=== PATIENT | female | born 1995 | race African-American/Black ===

== ENCOUNTER 2016-07-17 12:48 | Emergency (ER) | payer MEDICAID ==
[~2016-07-17] VITALS: Ht 172.7 cm; Wt 68.0 kg
[~2016-07-17 12:48] MED LIST: ALBU0.086 INH; ALBU8I INH; MEDR4PAK3 PO
[2016-07-17 12:53] VITALS: BP 157/96; PULSE 84; RESP 16; TEMP 97.9; O2SAT 97
[2016-07-17] MEDS ORDERED: RESP: ALBUTEROL 2.5 MG/IPRATROPIUM 0.5 MG NEB (SCH) INH ONE ×2 (13:00→13:30)
[2016-07-17] MEDS ORDERED: predniSONE 20 MG TAB PO ONE (13:00)
[2016-07-17] MEDS ORDERED: PRED-503 PO (13:02)
[2016-07-17] MEDS ORDERED: ALBUAER3 INH (13:02)
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
== END 2016-07-17 14:11 | disposition home or self-care (01) ==
LOC: NEPB 12:48
DX: J45.901 Unspecified asthma with (acute) exacerbation (principal); Z87.891 Personal history of nicotine dependence
CPT/HCPCS: 94640; 94664; 99283; J7512

== ENCOUNTER 2016-07-20 11:13 | Emergency (ER) | payer MEDICAID ==
[~2016-07-20] VITALS: Ht 172.7 cm; Wt 80.0 kg
[~2016-07-20 11:13] MED LIST changes: -ALBU0.086 INH; -ALBU8I INH; +ALBUAER3 INH; -MEDR4PAK3 PO; +PRED-503 PO
[2016-07-20 11:15] VITALS: BP 143/92; PULSE 74; RESP 12; TEMP 98.3; O2SAT 100
[2016-07-20] MEDS ORDERED: NAPROXEN 500 MG TAB PO ONE (11:45)
[2016-07-20] MEDS ORDERED: RESP: ALBUTEROL 2.5 MG/3 ML NEB (SCH) INH ONE (11:45)
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
--- NOTE | 2016-07-20 13:02 | RADRPT ---
EXAM DATE/TIME: 07/20/2016 12:21 [facility] COMPARISON: No previous studies available for comparison. INDICATIONS : Chest pain. MEDICAL HISTORY : None. SURGICAL HISTORY : None. ENCOUNTER: Initial ACUITY: 1 day PAIN SCORE: 8/10 LOCATION: Left chest FINDINGS: PA and lateral views of the chest demonstrate the lungs to be symmetrically aerated without evidence of mass, infiltrate or effusion. The cardiomediastinal contours are unremarkable. Osseous structure s are intact. CONCLUSION: No acute disease. Balta Boucher MD FACR on July 20, 2016 at 13:00 Board Certified Radiologist. This report was verified electronically.
[2016-07-20] MEDS ORDERED: ZITHTAB PO (13:07)
[2016-07-20] MEDS ORDERED: IBUP800T23 PO (13:09)
--- NOTE | 2016-07-21 14:18 | EKG ---
Date Performed: 07/20/2016 Time Performed: 11:35:14 PTAGE: 21 years EKG: Sinus rhythm WITH SINUS ARRHYTHMIA NORMAL ECG INTERPRETATION BASED ON A DEFAULT AGE OF 40 YEARS NO PREVIOUS TRACING DOCTOR: Rodrick Amato Interpretating Date/Time 07/21/2016 14:09:15
== END 2016-07-20 13:20 | disposition home or self-care (01) ==
LOC: NETRI 11:13
DX: R09.1 Pleurisy (principal); J20.9 Acute bronchitis, unspecified; J45.901 Unspecified asthma with (acute) exacerbation; F17.210 Nicotine dependence, cigarettes, uncomplicated
CPT/HCPCS: 71020; 84703; 93005; 94664; 99284; J7613

== ENCOUNTER 2016-09-14 07:16 | Emergency (ER) | payer MEDICAID ==
[~2016-09-14] VITALS: Ht 172.7 cm; Wt 75.0 kg
[~2016-09-14 07:16] MED LIST changes: +IBUP800T23 PO; +ZITHTAB PO
[2016-09-14 07:17] VITALS: BP 115/85; PULSE 114; RESP 20; TEMP 98.2; O2SAT 92
[2016-09-14 07:43] VITALS: PULSE 101; O2SAT 99
[2016-09-14] MEDS: RESP: ALBUTEROL 2.5 MG/IPRATROPIUM 0.5 MG NEB (SCH) INH ×2 (07:43→07:44)
[2016-09-14 07:44] VITALS: O2SAT 100
[2016-09-14] MEDS ORDERED: DEXAMETHASONE SOD PHOS 4 MG/ML VIAL IM ONE (07:45)
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
--- NOTE | 2016-09-14 08:22 | RADRPT ---
EXAM DATE/TIME: 09/14/2016 07:47 [facility] COMPARISON: CHEST SINGLE AP, October 13, 2012, 9:28. INDICATIONS : Cough. Short of breath. MEDICAL HISTORY : None. SURGICAL HISTORY : None. ENCOUNTER: Initial ACUITY: 1 day PAIN SCORE: 0/10 LOCATION: Bilateral chest FINDINGS: A single view of the chest demonstrates the lungs to be symmetrically aerated without evidence of mas s, infiltrate or effusion. The cardiomediastinal contours are unremarkable. Osseous structures are intact. CONCLUSION: No acute disease. Sumit Kwan MD on September 14, 2016 at 8:20 Board Certified Radiologist. This report was verified electronically.
[2016-09-14] MEDS ORDERED: PRED50 PO (08:32)
[2016-09-14] MEDS ORDERED: ALBUAER3 INH (08:32)
[2016-09-14] MEDS ORDERED: IPRASOL INH (08:32)
== END 2016-09-14 08:58 | disposition home or self-care (01) ==
LOC: NEPB 07:16
DX: J45.901 Unspecified asthma with (acute) exacerbation (principal); F17.210 Nicotine dependence, cigarettes, uncomplicated
CPT/HCPCS: 71010; 84703; 87804; 94640; 94664; 96372; 99283; J1100

== ENCOUNTER 2016-09-19 23:32 | Emergency (ER) | payer MEDICAID ==
[~2016-09-19 23:32] MED LIST changes: +IPRASOL INH; +PRED50 PO
[2016-09-19 23:34] VITALS: BP 121/83; PULSE 80; RESP 16; TEMP 98; O2SAT 98
== END 2016-09-20 01:54 | disposition left against medical advice (07) ==
LOC: NED 23:32
DX: M79.1 Myalgia (principal)
CPT/HCPCS: 99281

== ENCOUNTER 2017-03-28 08:41 | Emergency (ER) | payer SELFPAY ==
[~2017-03-28] VITALS: Ht 172.7 cm; Wt 75.0 kg
[2017-03-28 08:45] VITALS: BP 132/98; PULSE 69; RESP 18; TEMP 98.4; O2SAT 98
[2017-03-28] MEDS ORDERED: SODIUM CHLOR 0.9% 1000 ML INJ 1,000 ML IV ONE (09:06)
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
[2017-03-28] MEDS ORDERED: ONDANSETRON HCL 4 MG/2 ML VIAL IVP ONE (09:15)
[2017-03-28 09:21] LABS: AUTOMATED NEUTROPHIL # 6.3 TH/MM3 (1.8-7.7); BASOPHIL % 0.4 % (0.0-2.0); EOSINOPHIL # 0.1 TH/MM3 (0-0.4); EOSINOPHIL % 1.2 % (0.0-4.0); HEMATOCRIT 38.1 % (35.0-46.0); HEMO FLAGS DIFF FINAL; LYMPH % 19.7 % (9.0-44.0); LYMPHOCYTE # 1.7 TH/MM3 (1.0-4.8); MEAN CELL VOLUME 82.6 FL (80.0-100.0); MEAN CORPUSCULAR HEMOGLOBIN 28.5 PG (27.0-34.0); MEAN CORPUSCULAR HGB CONC 34.5 % (32.0-36.0); MONO % 5.2 % (0.0-8.0); NEUT % 73.5 % (16.0-70.0); PLATELET COUNT 206 TH/MM3 (150-450); RED BLOOD COUNT 4.61 MIL/MM3 (4.00-5.30); RED CELL DISTRIBUTION WIDTH 14.9 % (11.6-17.2); WHITE BLOOD COUNT 8.6 TH/MM3 (4.0-11.0)
[2017-03-28 09:28] LABS: BLOOD, URINE SMALL (NEG); COMMENT (UR) CULT NOT INDICATED; CULTURE IF INDICATED CULT NOT INDICATED; GLUCOSE,URINE NEG (NEG); KETONE, URINE NEG (NEG); NITRITE,URINE NEG (NEG); SQUAMOUS EPITHELIAL CELL URINE 3 /hpf (0-5); URINE COLOR YELLOW (YELLW/STRAW)
[2017-03-28 09:39] LABS: ALT (GPT) 52 U/L (10-53); ANION GAP 7 MEQ/L (5-15); AST (GOT) 20 U/L (15-37); BICARBONATE 22.2 MEQ/L (21.0-32.0); BLOOD UREA NITROGEN 8 MG/DL (7-18); CHLORIDE 107 MEQ/L (98-107); GLOMERULAR FILTRATION RATE 146 ML/MIN (>89); POTASSIUM 3.8 MEQ/L (3.5-5.1); SODIUM (NA) 136 MEQ/L (136-145)
[2017-03-28 09:56] LABS: ALKALINE PHOSPHATASE 68 U/L (45-117); BETA HCG QUANT 157846 MIU/ML (0-5); TOTAL BILIRUBIN ADULT 0.4 MG/DL (0.2-1.0)
[2017-03-28] MEDS ORDERED: ZOFR4TAB3 SL (10:03)
--- NOTE | 2017-03-28 10:13 | RADRPT ---
EXAM DATE/TIME: 03/28/2017 09:20 [place] COMPARISON: No previous studies available for comparison. INDICATIONS : Ectopic. LAB(S): Beta-hC MEDICAL HISTORY : Asthma. Carpal tunnel. Chronic back pain. Vomiting for 2 days. SURGICAL HISTORY : Silver caps on teeth. ENCOUNTER: Initial ACUITY: 2 days PAIN SCORE: 2/10 LOCATION: Bilateral pelvis MEASUREMENTS: UTERUS: 11.6 x 9.0 x 7.3 cm ENDOMETRIAL STRIPE: 15 mm RIGHT OVARY: 3.9 x 3.6 x 3.3 cm LEFT OVARY: 3.0 x 2.1 x 1.7 cm FREE FLUID: No CROWN RUMP LENGTH: 1.9 cm = 8 WKS 3 DAYS FHR: 163 BPM FINDINGS: UTERUS: There is a single live IUP in place. The gestational sac measures 5.0 x 5.0 x 1.5 cm. The embryonic p ole measures 1.9 cm in crown-rump length corresponding to a gestational age of 8 weeks 3 days. cardiac activity is seen. There is a 0.8 x 1.2 x 1.6 cm hypoechoic area seen at the periphery of the gestational sac. RIGHT OVARY: There is a 2.7 cm simple cyst seen at the right ovary. LEFT OVARY: Ovary contains no mass or significant cystic lesion. MISCELLANEOUS: No free fluid. CONCLUSION: 1. Single live IUP at 8 weeks 3 days. 2. 1.6 and are hypoechoic area seen adjacent to the gestational sac which could represent a subchorio sherly hemorrhage. 3. 2.7 cm simple cyst that the right ovary which could be related to the corpus luteum. Gray Chaudhary MD on March 28, 2017 at 10:08 Board Certified Radiologist. This report was verified electronically.
== END 2017-03-28 10:58 | disposition home or self-care (01) ==
LOC: NEPD 08:41
DX: O21.9 Vomiting of pregnancy, unspecified (principal); Z3A.08 8 weeks gestation of pregnancy; O99.331 Smoking (tobacco) complicating pregnancy, first trimester
CPT/HCPCS: 76700; 80053; 81001; 84702; 84703; 85025; 96361; 96374; 99285; J2405; J7030

== ENCOUNTER 2017-04-07 14:09 | Emergency (ER) | payer SELFPAY ==
[~2017-04-07] VITALS: Ht 172.7 cm; Wt 80.0 kg
[~2017-04-07 14:09] MED LIST changes: -IBUP800T23 PO; -IPRASOL INH; -PRED-503 PO; -PRED50 PO; -ZITHTAB PO; +ZOFR4TAB3 SL
[2017-04-07 14:11] VITALS: BP 146/77; PULSE 82; RESP 18; TEMP 98; O2SAT 99
--- NOTE | 2017-04-07 14:14 | PD ---
Physical Exam Time Seen by Provider: 14:13 Narrative 22 y/o female presents for evaluation after falling down some stairs this AM. C/O lower abd pain. Vital signs reviewed. Seen at triage desk. Awaiting bed placement. Data Data Last Documented VS Vital Signs Date Time Temp Pulse Resp B/P (MAP) Pulse Ox O2 Delivery O2 Flow Rate FiO2 04/07/17 14:11 98.0 82 18 146/77 (100) 99 Room Air [facility] Medical Record Reviewed: Yes Supervised Visit with ROSALBA: No Grady Boucher Apr 07, 2017 14:14
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
--- NOTE | 2017-04-07 16:52 | PD ---
Physical Exam Date Seen by Provider: Apr 07, 2017 Time Seen by Provider: 16:51 Narrative I was asked to perform a bedside ultrasound to verify IUP after trauma to the abdomen in a known gravid individual. Data Data Last Documented VS Vital Signs Date Time Temp Pulse Resp B/P (MAP) Pulse Ox O2 Delivery O2 Flow Rate FiO2 04/07/17 16:21 16 04/07/17 14:11 98.0 82 146/77 (100) 99 Room Air Orders Orders Ed Poc Ultrasound (04/07/17 ) Ed Poc Ultrasound (04/07/17 ) [facility] Medical Record Reviewed: Yes Supervised Visit with ROSALBA: Yes Differential Diagnosis Differential diagnosis includes , intra-abdominal injury, threatened AB , incomplete AB. Narrative Course I performed a bedside ultrasound using a curvilinear probe which reveals an IUP with positive heart tones and activity. The patient tolerated the procedure without difficulty and there was no obvious complications. Procedures Procedure Narrative I performed a bedside ultrasound using a curvilinear probe which reveals an IUP with positive heart tones and positive activity. The patient tolerated the procedure without difficulty and there was no obvious complications. Diagnosis Primary Impression: Fall Qualified Codes: W19.XXXA - Unspecified fall, initial encounter Additional Impressions: heart tones present Qualified Codes: Z34.91 - Encounter for supervision of normal , unspecified, first trimester movement present Qualified Codes: Z34.91 - Encounter for supervision of normal , unspecified, first trimester Referrals: Shirring Machine Operator Primary Care Physician Patient Instructions: General Instructions, Fall Prevention (ED), First Trimester (ED) Additional Instruction: Tylenol as directed and as needed for pain Follow-up with rope tow operator Follow-up with primary care provider Return to the emergency department immediately for worsening of symptoms Disposition: 01 DISCHARGE HOME Condition: Stable Hany Acosta MD Apr 07, 2017 16:52
[2017-04-07 17:00] VITALS: BP 110/83; TEMP 97.8
== END 2017-04-07 17:03 | disposition home or self-care (01) ==
LOC: NEPD 14:09
DX: Z34.91 Encounter for supervision of normal pregnancy, unspecified, first trimester (principal); R10.32 Left lower quadrant pain; W19.XXXA Unspecified fall, initial encounter
CPT/HCPCS: 99284

== ENCOUNTER 2017-05-22 20:14 | Emergency (ER) | payer OTHER ==
[~2017-05-22] VITALS: Ht 172.7 cm; Wt 71.7 kg
--- NOTE | 2017-05-22 20:54 | PD ---
HPI Chief Complaint 16 weeks and 2 days Pelvic pain 2 hours Date Seen: May 22, 2017 Time Seen: 20:40 Travel History International Travel<30 Days: No Contact w/Intl Traveler<30Days: No Known Affected Area: No History of Present Illness HPI Pt is a 22 yo g P at 16 weeks and 2 days . care with Bryan BURR. EDC 11-04-2016. Reports pelvic pain past 2 hours. Pain intermittent. She reports having pain for several weeks and has been taking PO Tylenol. 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 Also reports not feeling movements. No fevers or chills, No vaginal bleeding or leaking. Weeks Gestation: 16 History Past Medical History Medical History: Denies Significant Hx Obstetric History Obstetric History Prior term uncomplicated , delivered by C section for arrest of descent. Past Surgical History Narrative Surgical Previous C Section Surgical History: No Previous Surgery Family History Family History: Negative Social History Alcohol Use: No Tobacco Use: Yes (previous 1/2 [employer] smoker, quit on finding out about . ) Substance Abuse: No Allergies-Medications (Allergen,Severity, Reaction): Coded Allergies: No Known Allergies (Verified Adverse Reaction, Unknown, 05/22/17) Home Meds Active Scripts Ondansetron Odt (Zofran Odt) 4 Mg Tab, 4 MG SL Q6HR Y for Nausea/Vomiting, #10 TAB 0 Refills Prov:Hany Acosta MD 03/28/17 Albuterol 8.5 GM Inh (Proair Hfa 8.5 GM Inh) 90 Mcg/Act Aer, 2 PUFF INH Q4-6H Y for SOB/WHEEZING, #1 INHALER 0 Refills 108 mcg/actuation Prov:Tere Pittman 07/17/16 Reported Medications Acetaminophen (Tylenol) 325 Mg Tab, 650 MG PO Q4H Y for PAIN SCALE 1 TO 4, TAB 0 Refills 05/22/17 Review of Systems Except as stated in HPI: all other systems reviewed are Neg Physical Exam Narrative GENERAL: Well-nourished, well-developed patient. SKIN: Warm and dry. HEAD: Normocephalic and atraumatic. EYES: No scleral icterus. No injection or drainage. ENT: No nasal drainage noted. Mucous membranes pink. Airway patent. NECK: Supple, trachea midline. No JVD. CARDIOVASCULAR: Regular rate and rhythm without murmurs, gallops, or rubs. RESPIRATORY: Breath sounds equal bilaterally. No accessory muscle use. BREASTS: Bilateral exam showed no masses , no retractions, no nipple discharge. ABDOMEN/GI: Abdomen soft, non-tender, bowel sounds present, no rebound, no guarding Gravid to [16] weeks size Fundal Height: [-] GENITOURINARY: External Genitalia: intact and normal in appearance BUS glands: [wnl] Cervix: [-] Dilatation: [closed] Effacement: [long, uneffaced] Membranes: [intact Uterine Contractions: [none palpable] FHT's: Baseline: [160s by Doppler] Decels: [-] EXTREMITIES: No cyanosis or edema. BACK: Nontender without obvious deformity. No CVA tenderness. NEUROLOGICAL: Awake and alert. Motor and sensory grossly within normal limits. Five out of 5 muscle strength in all muscle groups. Normal speech. Data Data Vital Signs Reviewed: Yes MDM Medical Record Reviewed: No (No records available to review) Plan 22 yo AA female presents at 16 weeks and 2 days with bilateral groin pain. Likely round ligament pain. Pt is dehydrated with ketonuria. SG 1.030 with ketonuria We plan PO hydration. Cervix is closed, and FHR 160s documented by Doppler. Discharged home after rehydration. Diagnosis Diagnosis: Primary Impression: with 16 completed weeks gestation Additional Impressions: Round ligament pain Dehydration Ketonuria Disposition: 01 DISCHARGE HOME Condition: Stable Juan Pablo Daniel MD May 22, 2017 20:54
[2017-05-22] MEDS ORDERED: TYLE325T PO (20:56)
[2017-05-22] MEDS ORDERED: ACETAMINOPHEN 325 MG TAB PO ONE (21:00)
[2017-05-22 21:38] LABS: BACTERIA, URINE RARE /hpf; BLOOD, URINE NEG (NEG); COMMENT (UR) CULT NOT INDICATED; CULTURE IF INDICATED CULT NOT INDICATED; GLUCOSE,URINE NEG (NEG); KETONE, URINE 10 mg/dL (NEG); NITRITE,URINE NEG (NEG); SQUAMOUS EPITHELIAL CELL URINE 8 /hpf (0-5); URINE COLOR YELLOW (YELLW/STRAW)
== END 2017-05-22 21:23 | disposition home or self-care (01) ==
LOC: HOBED 20:14
DX: O26.892 Other specified pregnancy related conditions, second trimester (principal); R10.2 Pelvic and perineal pain; E86.0 Dehydration; R82.4 Acetonuria; Z3A.16 16 weeks gestation of pregnancy
CPT/HCPCS: 81001; 99284

== ENCOUNTER 2017-07-25 20:45 | Emergency (ER) | payer OTHER | END 2017-07-25 22:10 | disposition home or self-care (01) | LOC: HOBED 20:45 | DX: O36.8120 Decreased fetal movements, second trimester, not applicable or unspecified (principal); J45.909 Unspecified asthma, uncomplicated; Z3A.25 25 weeks gestation of pregnancy | CPT/HCPCS: 76815; 99283-25 ==

== ENCOUNTER 2017-08-18 18:38 | Emergency (ER) | payer OTHER ==
[~2017-08-18] VITALS: Ht 172.7 cm; Wt 90.5 kg
[~2017-08-18 18:38] MED LIST changes: +PREN1CHW7 PO; -ZOFR4TAB3 SL
[2017-08-18 18:39] VITALS: BP 129/70; PULSE 95; RESP 18; TEMP 98.2; O2SAT 100
[2017-08-18 19:13] VITALS: BP 131/76; PULSE 94
--- NOTE | 2017-08-18 19:54 | PD ---
HPI Chief Complaint Planes decreased movement, cold symptoms stopped up nose and sinuses, cough, denies fever nausea vomiting Date Seen: Aug 18, 2017 Time Seen: 19:40 Travel History International Travel<30 Days: No Contact w/Intl Traveler<30Days: No Known Affected Area: No History of Present Illness HPI 22-year-old black female 29 weeks previous goes to [facility] who presents with a several days history of sinus congestion and stuffiness nose cough , no fever chills nausea vomiting however noted decreased movement today. Heart rate tracing is within normal limit range for 29 weeks but is not classically reactive at this time, no contractions seen Weeks Gestation: 29 Para: 1 : 2 History Past Medical History Narrative Medical History of asthma and carries an inhaler with her and uses it periodically. Obstetric History Obstetric History 1 in the past Past Surgical History Narrative Surgical Social History Alcohol Use: No Tobacco Use: No Substance Abuse: No Allergies-Medications (Allergen,Severity, Reaction): Coded Allergies: No Known Allergies (Verified Adverse Reaction, Unknown, 07/20/17) Home Meds Active Scripts Azithromycin (Zithromax Z-Hernan) 250 Mg Dspk, 250 MG PO DIRECTED for Infection , #1 DSPK 0 Refills 500 MG (2 tabs) day 1, then 1 tab days 2-5. Prov:Hiren Hartman II, MD 08/18/17 Vit W/ Ferric Phospha (Vitafol Gummies 3.33-0.333-34.8 mg) 1 Chw Chw, 3 TAB PO DAILY, #90 BOTTLE 11 Refills Prov:Jen Stapleton 08/02/17 Albuterol 8.5 GM Inh (Proair Hfa 8.5 GM Inh) 90 Mcg/Act Aer, 2 PUFF INH Q4-6H Y for SOB/WHEEZING, #1 INHALER 3 Refills 108 mcg/actuation Prov:Jen Stapleton 08/02/17 Review of Systems General / Constitutional: No: Fever, Weight Gain, Chills, Other Eyes: No: Diploplia, Blurred Vision, Visual changes, Pain, Photophobia HENT: No: Headaches, Vertigo, Lightheadedness Cardiovascular: No: Irregular Rhythm, Chest Pain or Discomfort, Palpitations, Tachycardia, Syncope, Varicosities, Edema, Cyanosis Respiratory: Cough, No: Short of Breath, Other Gastrointestinal: No: Nausea, Vomiting, Diarrhea Genitourinary: No: Decreased Urinary Output, Oliguria Musculoskeletal: No: Limited ROM, Weakness, Cramping, Edema, Pain Skin: No Rash, No Itching, No Dryness, No Lumps, No Change in Pigmentation, No Change in Nails, No Alopecia, No Lesions Neurologic: No: Weakness, Dizziness, Syncope, Focal Abnormalities, Coordination Problem, Headache, Slurred Speech, Seizures Psychiatric: No: Depression, Suicidal Ideations, Homicidal Ideation Endocrine: No: Heat Intolerance, Cold Intolerance, Polydipsia, Polyuria, Other Physical Exam Vital Signs Date Time Temp Pulse Resp B/P (MAP) Pulse Ox O2 Delivery O2 Flow Rate FiO2 08/18/17 18:39 98.2 95 18 129/70 (89) 100 Room Air Narrative GENERAL: Well-nourished, well-developed patient. SKIN: Warm and dry. HEAD: Normocephalic and atraumatic. EYES: No scleral icterus. No injection or drainage. ENT: No nasal drainage noted. Mucous membranes pink. Airway patent. NECK: Supple, trachea midline. No JVD. CARDIOVASCULAR: Regular rate and rhythm positive grade 2/6 holosystolic murmur , gallops, or rubs. RESPIRATORY: Breath sounds equal bilaterally. No accessory muscle use. Positive slight expiratory wheeze bilaterally BREASTS: Bilateral exam showed no masses , no retractions, no nipple discharge. ABDOMEN/GI: Abdomen soft, non-tender, bowel sounds present, no rebound, no guarding Gravid to [29-] weeks size Fundal Height: [-29] GENITOURINARY: Membranes: [intact ] Uterine Contractions: [none-] FHT's: Category: [1-] Baseline: [133-] Reactive: [NR-] Variability: [mod-] Decels: none[-] EXTREMITIES: No cyanosis or edema. BACK: Nontender without obvious deformity. No CVA tenderness. NEUROLOGICAL: Awake and alert. Motor and sensory grossly within normal limits. Five out of 5 muscle strength in all muscle groups. Normal speech. Data Data Orders Orders Influenzae A/B Antigen (08/18/17 19:19) Vital Signs (Adult) .ON ADMISSION (08/18/17 19:27) ^ Labor Status (08/18/17 19:27) Urinalysis - C+S If Indicated (08/18/17 19:27) ^ Non Stress Test (08/18/17 19:27) Lactated Ringer's 1000 Ml Inj (Lr 1000 M (08/18/17 20:00) Complete Blood Count With Diff (08/18/17 19:38) Labs Flu swab for a and B influenza negative Urine dip on OB ED is negative for infection positive for minimal blood and protein MDM Interpretation(s) 2-year-old black female at 29 weeks resents with the cold symptoms and decreased movement. No bleeding or leakage of fluid. heart rate is within normal limits but not classically reactive at this time. There are no contractions. Plan to check a flu nasal washing. swab negative for influenza A or B . if negative then would go with a Z-Hernan antibiotic and medications for sinusitis and congestion. Plan to hydrate with a liter fluid check of CBC which was normal., FHR reactive for 29 wks after fluid and time on monitor Plan Plan to treat the patient with a Z-Hernan course, Claritin, as a spray first congestion, when necessary Diagnosis Diagnosis: Primary Impression: Decreased movement Additional Impression: Sinusitis Disposition: 01 DISCHARGE HOME Condition: Stable Scripts Azithromycin (Zithromax Z-Hernan) 250 Mg Dspk 250 MG PO DIRECTED for Infection, #1 DSPK 0 Refills 500 MG (2 tabs) day 1, then 1 tab days 2-5. Prov: Hiren Hartman II, MD 08/18/17 Hiren Hartman II, MD Aug 18, 2017 19:54
[2017-08-18] MEDS ORDERED: LACTATED RINGER'S 1000 ML INJ 1,000 ML IV SCH (20:00)
[2017-08-18 20:07] LABS: AUTOMATED NEUTROPHIL # 6.1 TH/MM3 (1.8-7.7); BASOPHIL # 0.1 TH/MM3 (0-0.2); BASOPHIL % 1.4 % (0.0-2.0); EOSINOPHIL # 0.2 TH/MM3 (0-0.4); EOSINOPHIL % 2.5 % (0.0-4.0); HEMATOCRIT 34.2 % (35.0-46.0); HEMOGLOBIN 11.6 GM/DL (11.6-15.3); LYMPH % 13.5 % (9.0-44.0); LYMPHOCYTE # 1.1 TH/MM3 (1.0-4.8); MEAN CELL VOLUME 83.5 FL (80.0-100.0); MEAN CORPUSCULAR HEMOGLOBIN 28.4 PG (27.0-34.0); MONO % 9.5 % (0.0-8.0); MONOCYTE # 0.8 TH/MM3 (0-0.9); NEUT % 73.1 % (16.0-70.0); PLATELET COUNT 214 TH/MM3 (150-450); RED BLOOD COUNT 4.09 MIL/MM3 (4.00-5.30); RED CELL DISTRIBUTION WIDTH 15.2 % (11.6-17.2); WHITE BLOOD COUNT 8.3 TH/MM3 (4.0-11.0)
[2017-08-18 20:15] VITALS: RESP 18
[2017-08-18 20:15] LABS: AMORPHOUS SEDIMENT, URINE RARE; BACTERIA, URINE RARE /hpf; BILIRUBIN, URINE NEG (NEG); BLOOD, URINE TRACE (NEG); GLUCOSE,URINE NEG (NEG); KETONE, URINE NEG (NEG); MUCUS URINE FEW /lpf (OCC); NITRITE,URINE NEG (NEG); PH, URINE 6.5 (5.0-8.5); SQUAMOUS EPITHELIAL CELL URINE 1 /hpf (0-5); URINE COLOR YELLOW (YELLW/STRAW); URINE LEUKOCYTE ESTERASE NEG (NEG)
[2017-08-18 20:45] VITALS: RESP 16
[2017-08-18] MEDS ORDERED: ZITHTAB PO (21:08)
== END 2017-08-18 21:34 | disposition home or self-care (01) ==
LOC: HOBED 18:38
DX: O36.8130 Decreased fetal movements, third trimester, not applicable or unspecified (principal); O26.893 Other specified pregnancy related conditions, third trimester; J32.9 Chronic sinusitis, unspecified; Z3A.29 29 weeks gestation of pregnancy; J45.909 Unspecified asthma, uncomplicated
CPT/HCPCS: 81001; 85025; 87804; 96360; 96361; 99284; J7120

== ENCOUNTER 2017-09-29 13:52 | Emergency (ER) | payer MEDICAID ==
[~2017-09-29 13:52] MED LIST changes: +ZITHTAB PO
[2017-09-29] MEDS ORDERED: CEPH-460 PO (15:00)
[2017-09-29] MEDS ORDERED: TYLETAB34 PO (15:01)
--- NOTE | 2017-09-29 15:01 | PD ---
HPI Chief Complaint Complains of abdominal pelvic pain and right jaw pain Date Seen: Sep 29, 2017 Time Seen: 14:45 Travel History International Travel<30 Days: No Contact w/Intl Traveler<30Days: No Known Affected Area: No History of Present Illness HPI Patient is 22-year-old black female at 35 weeks he [facility] and presents complaining of pelvic pain genital pain not quite as much abdominal contraction pain. She also complains of her right jaw and a lot of pain due to dental problems. She says the dentist would not do anything to her while she is and she has had no therapy for this other than Tylenol which says does little to nothing. Denies bleeding or leakage of fluid. Baby active. heart rate tracing is reactive. No regular contractions seen Weeks Gestation: 35 Para: 1 : 2 History Obstetric History Obstetric History 1 vaginal delivery Social History Alcohol Use: No Tobacco Use: No Substance Abuse: No Allergies-Medications (Allergen,Severity, Reaction): Coded Allergies: No Known Allergies (Verified Adverse Reaction, Unknown, 07/20/17) Home Meds Active Scripts Azithromycin (Zithromax Z-Hernan) 250 Mg Dspk, 250 MG PO DIRECTED for Infection , #1 DSPK 0 Refills 500 MG (2 tabs) day 1, then 1 tab days 2-5. Prov:Hiren Hartman II, MD 08/18/17 Vit W/ Ferric Phospha (Vitafol Gummies 3.33-0.333-34.8 mg) 1 Chw Chw, 3 TAB PO DAILY, #90 BOTTLE 11 Refills Prov:Jen Stapleton 08/02/17 Albuterol 8.5 GM Inh (Proair Hfa 8.5 GM Inh) 90 Mcg/Act Aer, 2 PUFF INH Q4-6H Y for SOB/WHEEZING, #1 INHALER 3 Refills 108 mcg/actuation Prov:Jen Stapleton 08/02/17 Review of Systems General / Constitutional: No: Fever, Weight Gain, Chills, Other Eyes: No: Diploplia, Blurred Vision, Visual changes, Pain, Photophobia HENT: Other, No: Headaches, Vertigo, Lightheadedness Cardiovascular: No: Irregular Rhythm, Chest Pain or Discomfort, Palpitations, Tachycardia, Syncope, Varicosities, Edema, Cyanosis Respiratory: No: Cough, Short of Breath, Other Gastrointestinal: Abdominal Pain, No: Nausea, Vomiting, Diarrhea Genitourinary: No: Decreased Urinary Output, Oliguria Musculoskeletal: No: Limited ROM, Weakness, Cramping, Edema, Pain Skin: No Rash, No Itching, No Dryness, No Lumps, No Change in Pigmentation, No Change in Nails, No Alopecia, No Lesions Neurologic: No: Weakness, Dizziness, Syncope, Focal Abnormalities, Coordination Problem, Headache, Slurred Speech, Seizures Psychiatric: No: Depression, Suicidal Ideations, Homicidal Ideation Endocrine: No: Heat Intolerance, Cold Intolerance, Polydipsia, Polyuria, Other Physical Exam Narrative GENERAL: Well-nourished, well-developed patient. In moderate discomfort SKIN: Warm and dry. HEAD: Normocephalic and atraumatic. EYES: No scleral icterus. No injection or drainage. ENT: No nasal drainage noted. Mucous membranes pink. Airway patent. Patient's right side of her face around the jaw area is slightly swollen, on looking inside the oral cavity she has 2 bad cavities on that right upper row of teeth in the back but I do not see redness purulence or is significant edema in that area NECK: Supple, trachea midline. No JVD. CARDIOVASCULAR: Regular rate and rhythm without murmurs, gallops, or rubs. RESPIRATORY: Breath sounds equal bilaterally. No accessory muscle use. BREASTS: Bilateral exam showed no masses , no retractions, no nipple discharge. ABDOMEN/GI: Abdomen soft, non-tender, bowel sounds present, no rebound, no guarding Gravid to [-35] weeks size Fundal Height: [-35] GENITOURINARY: External Genitalia: intact and normal in appearance BUS glands: [-] Cervix: [-post] Dilatation: [0-] Effacement: [-0] Station: [-3] Presentation: [vtx-] Membranes: [intact ] Uterine Contractions: [occasional-] FHT's: Category: [-1] Baseline: [133-] Reactive: [-R] Variability: [mod-] Decels: [none-] EXTREMITIES: No cyanosis or edema. BACK: Nontender without obvious deformity. No CVA tenderness. NEUROLOGICAL: Awake and alert. Motor and sensory grossly within normal limits. Five out of 5 muscle strength in all muscle groups. Normal speech. MDM Interpretation(s) Patient is 22-year-old black female at 35 weeks who has some pelvic pain today but her main problem seems to be her right jaw pain due to 2 bad cavities on the upper back teeth near the molar in the wisdom tooth area. There is no lymphadenopathy in the right side of her face in the jaw area is somewhat tender to palpation. There is no obstetric issue she is not chance cervix is closed and heart rate tracing is reactive Plan Plan to the patient and I M shot of Demerol and Phenergan for pain, I M Rocephin 2 g, p.o. Keflex for a week 500 mg 3 times daily. We will give her half a dozen Tylenol No. 3's for pain to use at home to hydrate appropriately and the follow-up with her OB provider Diagnosis Diagnosis: Primary Impression: Abdominal pain during in third trimester Additional Impressions: Dental cavities Pain in upper jaw Disposition: 01 DISCHARGE HOME Condition: Stable Scripts Acetaminophen-Codeine (Tylenol-Codeine #3) 300-30 mg Tab 1 TAB PO Q6H Y for PAIN, #7 TAB 0 Refills Prov: Hiren Hartman II, MD 09/29/17 Cephalexin (Keflex) 500 Mg Cap 500 MG PO Q8H for Infection for 7 Days, #21 CAP 0 Refills Prov: Hiren Hartman II, MD 09/29/17 Hiren Hartman II, MD Sep 29, 2017 15:01
[2017-09-29] MEDS ORDERED: MEPERIDINE HCL 50 MG/ML VIAL IM ONE (16:00)
[2017-09-29] MEDS ORDERED: PROMETHAZINE INJ 25 MG/ML VIAL IM ONE (16:00)
== END 2017-09-29 15:33 | disposition home or self-care (01) ==
LOC: HOBED 13:52
DX: O26.893 Other specified pregnancy related conditions, third trimester (principal); R10.2 Pelvic and perineal pain; K02.9 Dental caries, unspecified; R68.84 Jaw pain; Z3A.35 35 weeks gestation of pregnancy
CPT/HCPCS: 59025; 96372; 99283; J0696; J2175

== ENCOUNTER 2017-10-16 19:51 | Emergency (ER) | payer MEDICAID ==
[~2017-10-16 19:51] MED LIST changes: +CEPH-460 PO; +TYLETAB34 PO
--- NOTE | 2017-10-16 20:53 | PD ---
HPI Chief Complaint ctxs Date Seen: Oct 16, 2017 Time Seen: 20:48 Travel History International Travel<30 Days: No Contact w/Intl Traveler<30Days: No Known Affected Area: No History of Present Illness HPI pt. is a @ 37 09/15 weeks w/ c/o ctxs. pt. states been having ctxs thruout day that have increased in freq and intensity. pt. has h/o cd and sched for repeat on 10/28. pt. cervix closed/long/high/post. Weeks Gestation: 37 Para: 1 : 2 History Past Medical History Medical History: Denies Significant Hx Obstetric History Obstetric History , cd x 1 Past Surgical History Narrative Surgical h/o cd x 1 Family History Family History: Negative Social History Alcohol Use: No Tobacco Use: No Substance Abuse: No Allergies-Medications (Allergen,Severity, Reaction): Coded Allergies: No Known Allergies (Verified Adverse Reaction, Unknown, 07/20/17) Home Meds Active Scripts Acetaminophen-Codeine (Tylenol-Codeine #3) 300-30 mg Tab, 1 TAB PO Q6H Y for PAIN, #7 TAB 0 Refills Prov:Hiren Hartman II, MD 09/29/17 Cephalexin (Keflex) 500 Mg Cap, 500 MG PO Q8H for Infection for 7 Days, #21 CAP 0 Refills Prov:Hiren Hartman II, MD 09/29/17 Azithromycin (Zithromax Z-Hernan) 250 Mg Dspk, 250 MG PO DIRECTED for Infection , #1 DSPK 0 Refills 500 MG (2 tabs) day 1, then 1 tab days 2-5. Prov:Hiren Hartman II, MD 08/18/17 Vit W/ Ferric Phospha (Vitafol Gummies 3.33-0.333-34.8 mg) 1 Chw Chw, 3 TAB PO DAILY, #90 BOTTLE 11 Refills Prov:Jen Stapleton 08/02/17 Albuterol 8.5 GM Inh (Proair Hfa 8.5 GM Inh) 90 Mcg/Act Aer, 2 PUFF INH Q4-6H Y for SOB/WHEEZING, #1 INHALER 3 Refills 108 mcg/actuation Prov:Jen Stapleton 1/22/18 Review of Systems Except as stated in HPI: all other systems reviewed are Neg Physical Exam Narrative GENERAL: Well-nourished, well-developed patient. SKIN: Warm and dry. HEAD: Normocephalic and atraumatic. EYES: No scleral icterus. No injection or drainage. ENT: No nasal drainage noted. Mucous membranes pink. Airway patent. NECK: Supple, trachea midline. No JVD. CARDIOVASCULAR: Regular rate and rhythm without murmurs, gallops, or rubs. RESPIRATORY: Breath sounds equal bilaterally. No accessory muscle use. ABDOMEN/GI: Abdomen soft, non-tender, bowel sounds present, no rebound, no guarding Gravid GENITOURINARY: External Genitalia: intact and normal in appearance Cervix: post Dilatation: closed Effacement: long Station:high Uterine Contractions: irreg FHT's: Category: 1 Reactive:+ Variability: mod EXTREMITIES: No cyanosis or edema. BACK: Nontender without obvious deformity. No CVA tenderness. NEUROLOGICAL: Awake and alert. Motor and sensory grossly within normal limits. Five out of 5 muscle strength in all muscle groups. Normal speech. Data Data Vital Signs Reviewed: Yes Orders Orders Senior Php Web Developer Clear For Discharge (10/16/17 ) [facility] Medical Record Reviewed: Yes Plan pt. to be d/c to home. not in labor. condition d/w pt. pt. given precautions for return. all ? answered. f/u as sched. Diagnosis Diagnosis: Primary Impression: History of delivery Additional Impressions: Uterine contractions during 37 weeks gestation of Disposition: 01 DISCHARGE HOME Rodrick Jones Jr., MD Oct 16, 2017 20:53
== END 2017-10-16 20:58 | disposition home or self-care (01) ==
LOC: HOBED 19:51
DX: O26.893 Other specified pregnancy related conditions, third trimester (principal); N85.8 Other specified noninflammatory disorders of uterus; Z3A.37 37 weeks gestation of pregnancy
CPT/HCPCS: 59025

== ENCOUNTER 2017-10-22 09:00 | Inpatient (IN) | payer MEDICAID ==
[~2017-10-22] VITALS: Ht 172.7 cm; Wt 97.0 kg
[2017-10-28] VITALS (19 sets, daily range): BP systolic 121–153; BP diastolic 76–106; PULSE 72–105; RESP 16–19; TEMP 97.9–98.4; O2SAT 98–100
[2017-10-28] MEDS ORDERED: LACTATED RINGER'S 1000 ML INJ 1,000 ML IV ONE ×2 (08:20→12:00)
[2017-10-28] MEDS ORDERED: LACTATED RINGER'S 1000 ML INJ 1,000 ML IV SCH (08:50)
[2017-10-28] MEDS ORDERED: ALBUTEROL SULFATE 90 MCG/ACT HFA 8 GM INHALER INH PRN (09:00)
[2017-10-28 09:02] LABS: AUTOMATED NEUTROPHIL # 5.5 TH/MM3 (1.8-7.7); BASOPHIL % 0.3 % (0.0-2.0); EOSINOPHIL # 0.1 TH/MM3 (0-0.4); EOSINOPHIL % 0.7 % (0.0-4.0); HEMATOCRIT 31.7 % (35.0-46.0); HEMOGLOBIN 10.3 GM/DL (11.6-15.3); LYMPH % 19.6 % (9.0-44.0); LYMPHOCYTE # 1.5 TH/MM3 (1.0-4.8); MEAN CELL VOLUME 73.3 FL (80.0-100.0); MEAN CORPUSCULAR HEMOGLOBIN 23.8 PG (27.0-34.0); MEAN CORPUSCULAR HGB CONC 32.4 % (32.0-36.0); MEAN PLATELET VOLUME 8.2 FL (7.0-11.0); MONO % 7.9 % (0.0-8.0); MONOCYTE # 0.6 TH/MM3 (0-0.9); NEUT % 71.5 % (16.0-70.0); PLATELET COUNT 159 TH/MM3 (150-450); RED BLOOD COUNT 4.32 MIL/MM3 (4.00-5.30); RED CELL DISTRIBUTION WIDTH 16.9 % (11.6-17.2); WHITE BLOOD COUNT 7.7 TH/MM3 (4.0-11.0)
--- NOTE | 2017-10-28 09:05 | HHI.HP ---
HPI Chief Complaint repeat Date Seen: Oct 28, 2017 Time Seen: 08:25 Travel History International Travel<30 Days: No Contact w/Intl Traveler<30Days: No Known Affected Area: No History of Present Illness HPI Ms Parmar is a 22YO AAF at 39/1 weeks followed by [facility] who presents fro elective repeat C/S. Pt has PMHx of asthma controlled on PRN albuterol inhaler. Pt reports no LOF or VB. There are no ctx. She has had an uneventful . Her first was complicated by pre-eclampsia and failure to progress followed by C/S. Pt denies PRYOR, CP, SOB, N/V/D, rash, dizziness, fever, chills, and DVT pain. Pt takes PNV in addition to PRN albuterol and has NKA. Weeks Gestation: 39 Para: 1 : 2 History Past Medical History Narrative Medical Asthma Obstetric History Obstetric History 1st required C/S due to failure to progress 1st complicated by pre-eclampsia this has been without complication Past Surgical History Narrative Surgical 1 Family History Narrative Family History Mother - DM and HTN Social History Alcohol Use: No Tobacco Use: Yes (pt quit smoking when she found out she was ) Substance Abuse: No Allergies-Medications (Allergen,Severity, Reaction): Coded Allergies: No Known Allergies (Verified Adverse Reaction, Unknown, 07/20/17) Home Meds Active Scripts Acetaminophen-Codeine (Tylenol-Codeine #3) 300-30 mg Tab, 1 TAB PO Q6H Y for PAIN, #7 TAB 0 Refills Prov:Hiren Hartman II, MD 09/29/17 Cephalexin (Keflex) 500 Mg Cap, 500 MG PO Q8H for Infection for 7 Days, #21 CAP 0 Refills Prov:Hiren Hartman II, MD 09/29/17 Azithromycin (Zithromax Z-Hernan) 250 Mg Dspk, 250 MG PO DIRECTED for Infection , #1 DSPK 0 Refills 500 MG (2 tabs) day 1, then 1 tab days 2-5. Prov:Hiren Hartman II, MD 08/18/17 Vit W/ Ferric Phospha (Vitafol Gummies 3.33-0.333-34.8 mg) 1 Chw Chw, 3 TAB PO DAILY, #90 BOTTLE 11 Refills Prov:Jen Stapleton [employer]YING ENGINEER 08/02/17 Albuterol 8.5 GM Inh (Proair Hfa 8.5 GM Inh) 90 Mcg/Act Aer, 2 PUFF INH Q4-6H Y for SOB/WHEEZING, #1 INHALER 3 Refills 108 mcg/actuation Prov:Jen Stapleton [facility] 08/02/17 Review of Systems General / Constitutional: No: Fever, Chills Eyes: No: Visual changes HENT: No: Headaches, Lightheadedness Cardiovascular: Chest Pain or Discomfort (pt states she had CP 2 weeks ago), No : Palpitations Respiratory: No: Cough, Short of Breath Gastrointestinal: No: Nausea, Vomiting, Diarrhea, Abdominal Pain, Constipation Genitourinary: No: Dysuria Musculoskeletal: No: Weakness, Cramping, Edema Skin: No Rash Neurologic: No: Dizziness, Headache Psychiatric: Depression (occasional) Physical Exam Narrative GENERAL: Well-nourished, well-developed patient in NAD. SKIN: Warm and dry. No lesions or rashes. HEAD: Normocephalic and atraumatic. EYES: No scleral icterus. No injection or drainage. EOMI. ENT: No nasal drainage noted. Mucous membranes pink. Airway patent. NECK: Supple, trachea midline. No JVD. CARDIOVASCULAR: Regular rate and rhythm without murmurs, gallops, or rubs. RESPIRATORY: Breath sounds equal bilaterally. No accessory muscle use. Wheezing heard bilaterally. ABDOMEN/GI: Abdomen soft, non-tender, bowel sounds present, no rebound, no guarding Gravid to 39 weeks size GENITOURINARY: External Genitalia: intact and normal in appearance Cervix: deferred due to C/S Dilatation: 0 Effacement: 50 Station: - Presentation: - Membranes: intact Uterine Contractions: absent FHT's: Category: 1 Baseline: 145 Reactive: yes Variability: moderate Decels: absent EXTREMITIES: No cyanosis or edema. BACK: Nontender without obvious deformity. No CVA tenderness. NEUROLOGICAL: Awake and alert. Motor and sensory grossly within normal limits. Five out of 5 muscle strength in all muscle groups. Normal speech. Caprini VTE Risk Assessment Caprini VTE Risk Assessment: No/Low Risk (score <= 1) Caprini Risk Assessment Model Point Value = 1 Point Value = 2 Point Value = 3 Point Value = 5 Age 41-60 Minor surgery BMI > 25 kg/m2 Swollen legs Varicose veins or History of unexplained or recurrent spontaneous Oral contraceptives or hormone replacement Sepsis (< 1 month) Serious lung disease, including pneumonia (< 1 month) Abnormal pulmonary function Acute myocardial infarction Congestive heart failure (< 1 month) History of inflammatory bowel disease Medical patient at bed rest Age 61-74 Arthroscopic surgery Major open surgery (> 45 min) Laparoscopic surgery (> 45 min) Malignancy Confined to bed (> 72 hours) Immobilizing plaster cast Central venous access Age >= 75 History of VTE Family history of VTE Factor V Leiden Prothrombin [id number] Lupus anticoagulant Anticardiolipin antibodies Elevated serum homocysteine Heparin-induced thrombocytopenia Other congenital or acquired thrombophilia Stroke (< 1 month) Elective arthroplasty Hip, pelvis, or leg fracture Acute spinal cord injury (< 1 month) Prophylaxis Regimen Total Risk Factor Score Risk Level Prophylaxis Regimen 0-1 Low Early ambulation 2 Moderate Order ONE of the following: *Sequential Compression Device (SCD) *Heparin 5000 units SQ BID 3-4 Higher Order ONE of the following medications: *Heparin 5000 units SQ TID *Enoxaparin/Lovenox 40 mg SQ daily (WT < 150 kg, CrCl > 30 mL/min) *Enoxaparin/Lovenox 30 mg SQ daily (WT < 150 kg, CrCl > 10-29 mL/min) *Enoxaparin/Lovenox 30 mg SQ BID (WT < 150 kg, CrCl > 30 mL/min) AND/OR *Sequential Compression Device (SCD) 5 or more Highest Order ONE of the following medications: *Heparin 5000 units SQ TID (Preferred with Epidurals) *Enoxaparin/Lovenox 40 mg SQ daily (WT < 150 kg, CrCl > 30 mL/min) *Enoxaparin/Lovenox 30 mg SQ daily (WT < 150 kg, CrCl > 10-29 mL/min) *Enoxaparin/Lovenox 30 mg SQ BID (WT < 150 kg, CrCl > 30 mL/min) AND *Sequential Compression Device (SCD) Data Data Vital Signs Reviewed: Yes Orders Orders Admit To Inpatient (10/28/17 ) Code Status (10/28/17 08:20) Vital Signs (Adult) .ON ADMISSION (10/28/17 08:20) Activity Oob Ad Susan (10/28/17 08:20) Heart (10/28/17 08:20) Urinary Catheter Management GEOFF.Q8H (10/28/17 08:20) ^ Preps (10/28/17 08:20) Scd / Ari / Foot Pump GEOFF.QSHIFT (10/28/17 08:20) ^ Ultrasound For Locatio (10/28/17 08:20) Diet Npo (10/28/17 Breakfast) Lactated Ringer's 1000 Ml Inj (Lr 1000 M (10/28/17 08:20) Lactated Ringer's 1000 Ml Inj (Lr 1000 M (10/28/17 08:50) Cefazolin 2 Gm Premix (Ancef 2 Gm Premix (10/28/17 09:30) Citric Acid-Sodium Citrate Liq (Bicitra (10/28/17 10:00) Type And Screen (10/28/17 08:20) Complete Blood Count With Diff (10/28/17 08:20) Urinalysis - C+S If Indicated (10/28/17 08:20) Drug Screen, Random Urine (10/28/17 08:20) Inpatient Certification (10/28/17 ) Specimen To Be Collected PRN (10/28/17 08:20) Specimen To Be Collected PRN (10/28/17 08:20) Assessment/Plan Assessment and Plan 22YO at 39/1 weeks presents for elective repeat C/S. FHT with Cat 1 tracing , BL 145, reactive, moderate, absent decels. Admit to L&D for repeat C/S. 1. IUP -Monitor and toco -Pre-op for C/S -Ancef 2g IV per protocol -NPO until after surgery -Albuterol inhaler PRN Pt dw Dr Hartman Discharge Planning 3 days Agustin Mata MD R1 Oct 28, 2017 09:05
[2017-10-28 09:15] LABS: BACTERIA, URINE RARE /hpf; BLOOD, URINE SMALL (NEG); CALCIUM OXALATE CRYSTALS,URINE MOD /hpf; GLUCOSE,URINE NEG (NEG); KETONE, URINE NEG (NEG); MUCUS URINE FEW /lpf (OCC); NITRITE,URINE NEG (NEG); PH, URINE 6.5 (5.0-8.5); SQUAMOUS EPITHELIAL CELL URINE 32 /hpf (0-5); URINE COLOR YELLOW (YELLW/STRAW); URINE LEUKOCYTE ESTERASE LARGE (NEG)
[2017-10-28 09:18] LABS: BILIRUBIN, URINE NEG (NEG)
[2017-10-28] MEDS ORDERED: ceFAZolin 2 GM PREMIX 50 ML IV SCH ×2 (09:30→21:00)
[2017-10-28] MEDS: PRENATAL VITAMIN CHEWABLE TAB PO SCH (10:00)
[2017-10-28] MEDS ORDERED: CITRIC ACID-SODIUM CITRATE LIQ 30 ML UDC PO SCH (10:00)
[2017-10-28] MEDS ORDERED: MORPHINE SULFATE PF 5 MG/10 ML VIAL ONE (10:24)
[2017-10-28] MEDS ORDERED: ACETAMINOPHEN 1000 MG/100 ML 100 ML IV ONE (10:24)
[2017-10-28] MEDS ORDERED: PHENYLEPH/NS 1000 MCG/10 ML SYR IV ONE (12:00)
[2017-10-28] MEDS ORDERED: ONDANSETRON HCL 4 MG/2 ML VIAL IV ONE (12:00)
[2017-10-28] MEDS ORDERED: KETOROLAC TROMETHAMINE 30 MG/ML (IVP) VIAL IV PUSH ONE (12:00)
[2017-10-28] MEDS ORDERED: OXYTOCIN 10 UNIT/ML AMP IV ONE (12:00)
[2017-10-28] MEDS ORDERED: EPINEPHrine HCL (1:1000) 1 MG/ML VIAL IV ONE (12:00)
[2017-10-28] MEDS ORDERED: LIDOCAINE HCL 1% PF 5 ML SYRINGE OTHER ONE (12:00)
[2017-10-28] MEDS ORDERED: PROPOFOL 200 MG/20 ML AMP IV ONE (12:00)
[2017-10-28] MEDS ORDERED: oxyCODONE/ACETAMINOPHEN 5 MG/325 MG TAB PO PRN (12:15)
[2017-10-28] MEDS ORDERED: SODIUM CHLORIDE 0.9% FLUSH 10 ML FLUSH IV FLUSH PRN (12:15)
[2017-10-28] MEDS ORDERED: ONDANSETRON HCL 4 MG/2 ML VIAL IV PUSH PRN (12:15)
[2017-10-28] MEDS ORDERED: DOCUSATE SODIUM 50 MG/SENNA 8.6 MG TAB PO PRN (12:15)
[2017-10-28] MEDS ORDERED: OXYTOCIN 30 UNITS-500ML PREMIX 500 ML IV ONE (12:30)
[2017-10-28] MEDS ORDERED: ACETAMINOPHEN 325 MG TAB PO PRN (12:30)
[2017-10-28 16:11] LABS: HEMATOCRIT 31.7 % (35.0-46.0); HEMOGLOBIN 10.2 GM/DL (11.6-15.3); MEAN CELL VOLUME 73.5 FL (80.0-100.0); MEAN CORPUSCULAR HEMOGLOBIN 23.7 PG (27.0-34.0); MEAN CORPUSCULAR HGB CONC 32.2 % (32.0-36.0); MEAN PLATELET VOLUME 7.5 FL (7.0-11.0); PLATELET COUNT 141 TH/MM3 (150-450); RED BLOOD COUNT 4.31 MIL/MM3 (4.00-5.30); RED CELL DISTRIBUTION WIDTH 16.8 % (11.6-17.2); WHITE BLOOD COUNT 9.4 TH/MM3 (4.0-11.0)
[2017-10-28] MEDS ORDERED: LIDOCAINE HCL 1% PF 5 ML AMPULE ONE (16:19)
[2017-10-28] MEDS ORDERED: OXYTOCIN 30 UNITS-500ML PREMIX 500 ML IV PRN (17:15)
[2017-10-28] MEDS ORDERED: LIDOCAINE HCL 1% 50 ML VIAL SQ ONE (17:15)
[2017-10-28] MEDS: ceFAZolin 2 GM/DEX PREMIX 50 ML IV SCH (17:42)
--- NOTE | 2017-10-28 17:56 | HHI.PR ---
[employer] Note Note called to see patient by nursing 2/2 bleeding from the incision. per nursing, pt. w/ hematoma at left lateral aspect of the incision. when came to see pt., teagderms on left side of incision noted to be blood filled and raised. 5x5cm mass noted in the incision in this region. d/w pt. condition and need for exploration of incision. pt. give verbal consent for procedure. a staple remover was used to remove the jordi on the left side of the skin incision to ~ mid incision. the incision was then opened and a large amount of bright red blood escaped from the incision and active bleed was noted. the incsion was inspected and the region of bleeding in the subcuticular region was noted. the wound was infused with 1% lidocaine and a 3-0 vicryl was used in a figure of 8 fashion to make the wound hemostatic. the incision was then cleaned with betadine solution and jordi were replaced. sponge and needle counts were correct. pt. hermila procedure w/o diff. Rodrick Jones Jr., MD Oct 28, 2017 17:56
[2017-10-28] MEDS: METRONIDAZOLE 500 MG/100 ML ISONTONIC SOLN IV SCH (18:32)
[2017-10-28] MEDS ORDERED: SODIUM CHLORIDE 0.9% FLUSH 10 ML FLUSH IV FLUSH SCH (21:00)
[2017-10-28] MEDS: oxyCODONE/ACETAMINOPHEN 5 MG/325 MG TAB PO PRN (22:38)
[2017-10-28] MEDS: IBUPROFEN 600 MG TAB PO PRN (22:38)
[2017-10-29] VITALS: BP 130/87; PULSE 83; RESP 18; TEMP 98; O2SAT 98
[2017-10-29] MEDS: ceFAZolin 2 GM/DEX PREMIX 50 ML IV SCH ×2 (01:07→10:38)
[2017-10-29] MEDS: LACTATED RINGER'S 1000 ML INJ 1,000 ML IV SCH ×2 (01:07→08:45)
[2017-10-29 02:41] VITALS: RESP 16
[2017-10-29 04:00] VITALS: BP 118/73; PULSE 81; RESP 16; TEMP 98.3; O2SAT 97
[2017-10-29 08:00] VITALS: BP 142/95; PULSE 89; RESP 20; TEMP 97.7; O2SAT 96
[2017-10-29] MEDS: IBUPROFEN 600 MG TAB PO PRN ×3 (08:43→23:40)
[2017-10-29] MEDS: oxyCODONE/ACETAMINOPHEN 5 MG/325 MG TAB PO PRN ×3 (08:43→21:22)
[2017-10-29] MEDS: METRONIDAZOLE 500 MG/100 ML ISONTONIC SOLN IV SCH (08:44)
[2017-10-29] MEDS: PRENATAL VITAMIN CHEWABLE TAB PO SCH (08:48)
[2017-10-29 09:31] LABS: BASOPHIL % 0.4 % (0.0-2.0); EOSINOPHIL # 0.1 TH/MM3 (0-0.4); EOSINOPHIL % 1.1 % (0.0-4.0); HEMATOCRIT 33.8 % (35.0-46.0); HEMOGLOBIN 10.8 GM/DL (11.6-15.3); LYMPH % 8.3 % (9.0-44.0); LYMPHOCYTE # 0.8 TH/MM3 (1.0-4.8); MEAN CELL VOLUME 73.9 FL (80.0-100.0); MEAN CORPUSCULAR HEMOGLOBIN 23.6 PG (27.0-34.0); MEAN PLATELET VOLUME 7.8 FL (7.0-11.0); MONO % 5.9 % (0.0-8.0); MONOCYTE # 0.6 TH/MM3 (0-0.9); NEUT % 84.3 % (16.0-70.0); PLATELET COUNT 160 TH/MM3 (150-450); RED BLOOD COUNT 4.57 MIL/MM3 (4.00-5.30); WHITE BLOOD COUNT 9.5 TH/MM3 (4.0-11.0)
--- NOTE | 2017-10-29 10:15 | HHI.OB ---
Subjective Post Operative Day: 1 Remarks Ms Parmar is POD#1 from repeat C/S and had no acute events overnight; however , post-operatively she developed a hematoma at the surgical incision site which was opened at bedside, hematoma evacuated, hemostasis achieved with sutures, and incision closed with jordi. This morning her pain is controlled, no complaint of incision leakage with wound c/d/i, ambulating w/o dizziness, trujillo due to be removed, taking PO w/o nausea, and some flatus but no BM. Lochia is decreasing but pt noted a large clot about the size of a hot dog yesterday afternoon. No clots since then. Denies CP, SOB, N/V/D and DVT pain. Stable and no concerns. Objective Vitals/I&O Vital Signs Date Time Temp Pulse Resp B/P (MAP) Pulse Ox O2 Delivery O2 Flow Rate FiO2 10/29/17 08:00 97.7 89 20 142/95 (111) 96 10/29/17 04:00 16 10/29/17 04:00 98.3 81 118/73 (88) 97 10/29/17 02:41 16 10/29/17 00:00 98.0 83 18 98 10/29/17 00:00 130/87 (101) 10/28/17 22:38 84 100 10/28/17 20:00 81 130/87 (101) 10/28/17 20:00 98.4 18 99 10/28/17 13:28 98 10/28/17 13:27 97.9 10/28/17 13:27 82 16 128/82 (97) 10/28/17 12:45 98.0 77 18 138/85 (102) 100 10/28/17 12:30 79 19 132/88 (103) 100 10/28/17 12:15 72 18 121/77 (92) 99 10/28/17 12:00 75 19 129/81 (97) 100 10/28/17 12:00 98.0 Result Diagram: 10/29/17 0915 Objective Remarks GENERAL: Well-nourished, well-developed patient lying in bed in NAD. CARDIOVASCULAR: Regular rate and rhythm without murmurs, gallops, or rubs. RESPIRATORY: Breath sounds equal bilaterally with expiratory wheeze. No accessory muscle use. No increased WOB. ABDOMEN/GI: Abdomen soft, non-tender, bowel sounds present. Incision: Clean, dry and intact. Fundus: Firm, non-tender at umbilicus. GENITOURINARY: Light to moderate bleeding. EXTREMITIES: No cyanosis or edema, non-tender, without signs of DVT. Medications and IVs Current Medications Medications (Trade) Dose Ordered Sig/Ap Route Start Time Stop Time Status Last Admin Cefazolin Sodium/ Dextrose 50 ml @ 100 mls/hr BOARD MEMBER IV 10/28/17 09:30 11/01/17 09:29 10/28/17 12:46 (Bicitra Liq) 30 ml BOARD MEMBER PO 10/28/17 10:00 11/01/17 09:59 10/28/17 12:46 (Proair Hfa Inh) 2 puff QID PRN INH 10/28/17 09:00 10/28/17 22:38 Non-Formulary Medication 3 tab DAILY PO 10/28/17 09:00 UNV Lactated Ringer's 1,000 ml @ 100 mls/hr Q10H IV 10/28/17 17:05 10/29/17 13:04 10/29/17 08:45 Oxytocin 500 ml @ 100 mls/hr UNSCH X1 PRN IV 10/28/17 17:15 10/29/17 17:14 (NS Flush) 2 ml BID IV FLUSH 10/28/17 21:00 10/29/17 08:42 (NS Flush) 2 ml UNSCH PRN IV FLUSH 10/28/17 12:15 (Tylenol) 650 mg Q6H PRN PO 10/28/17 12:30 (Motrin) 600 mg Q6H PRN PO 10/28/17 12:15 10/29/17 08:43 (Percocet 5-325 Mg) 1 tab Q4H PRN PO 10/28/17 12:15 10/29/17 08:43 (Percocet 5-325 Mg) 2 tab Q4H PRN PO 10/28/17 12:15 (Mary Lou-Colace) 2 tab Q12H PRN PO 10/28/17 12:15 (M-M-R Ii Inj) 0.5 ml ONCE ONCE SQ 10/29/17 16:00 10/29/17 16:01 (Boostrix Inj) 0.5 ml ONCE ONCE IM 10/29/17 16:00 10/29/17 16:01 (Zofran Inj) 4 mg Q6H PRN IV PUSH 10/28/17 12:15 Cefazolin Sodium/ Dextrose 50 ml @ 100 mls/hr Q8H IV 10/28/17 17:15 10/29/17 01:07 Metronidazole 100 ml @ 100 mls/hr DAILY IV 10/28/17 18:00 10/29/17 08:44 Assessment/Plan Assessment and Plan 22YO at 39/1 weeks is POD#1 following elective repeat C/S requiring bedside hematoma evacuation yesterday afternoon with closure via subdermal sutures and epidermal jordi. This morning her pain is controlled, no complaint of incision leakage and wound is c/d/i, ambulating w/o dizziness, trujillo removed, taking PO w/o nausea, and some flatus but no BM. Lochia is decreasing but pt noted a large clot about the size of a hot dog yesterday afternoon. No clots since then. Denies CP, SOB, N/V/D and DVT pain. Stable and no concerns. 1. Post-op care -Percocet, motrin and tylenol PRN for pain -Ancef 2g IV per protocol x3 doses (2 of 3 doses given) -Flagyl 500mg IV (2 doses given) -Zofran 4mg IV q4h PRN -LR IVF @ 100ml/hr -Multi-vitamin 2. Routine care -Pt is formula feeding -Showers only (no baths x2 weeks) -Pelvic rest for 6 weeks -Pt still deciding contraceptive options -Pt will follow up with [facility] in 1 week following discharge 3. Asthma -Albuterol inhaler PRN Pt dw Akosua Jones and Marychuy Parmar Discharge Planning 3 days Agustin Mata MD R1 Oct 29, 2017 10:15
[2017-10-29] MEDS ORDERED: diphenhydrAMINE HCL 50 MG CAP PO PRN (11:00)
[2017-10-29 12:00] VITALS: BP 120/82; PULSE 82; RESP 20; TEMP 97.8; O2SAT 100
[2017-10-29] MEDS ORDERED: DIPHTH/TETANUS/ACEL PERTUSSIS (BOOSTER) 0.5 ML VIAL/PFS IM ONE (16:00)
[2017-10-29] MEDS ORDERED: MEASLES, MUMPS, RUBELLA VACCINE 0.5 ML VIAL SQ ONE (16:00)
[2017-10-29 20:00] VITALS: BP 127/74; PULSE 72; RESP 18; TEMP 98.4; O2SAT 99
[2017-10-30] MEDS: oxyCODONE/ACETAMINOPHEN 5 MG/325 MG TAB PO PRN ×2 (05:14→09:23)
[2017-10-30] MEDS ORDERED: PERI PO (07:33)
[2017-10-30] MEDS ORDERED: OXYC1TAB63 PO ×2 (07:33→07:48)
--- NOTE | 2017-10-30 07:34 | HHI.DCPOC ---
Discharge Care Plan Diagnosis: (1) Status post repeat low transverse section (2) Hematoma of section or perineal wound Report Symptoms to Your Doctor -Temperature above 100.5 degrees -Redness, of incision or excessive or foul smelling drainage -Unusual pain or calf pain -Increased vaginal bleeding -Painful or difficulty urinating -Feelings of extreme sadness or anxiety after 2 weeks Goals to Promote Your Health * To prevent worsening of your condition and complications * To maintain your health at the optimal level Directions to Meet Your Goals Take your medications as prescribed Follow your dietary instruction Follow activity as directed Ensure plenty of rest for recovery Drink fluids for hydration Keep your appointments as scheduled Take your immunizations and boosters as scheduled If your symptoms worsen call your PCP, if no PCP go to Urgent Care Center or Emergency Room Smoking is Dangerous to Your Health. Avoid second hand smoke Call the 24-hour crisis hotline for domestic abuse at Delphine Parmar MD R2 Oct 30, 2017 07:34
[2017-10-30 08:05] VITALS: BP 124/72; PULSE 88; PULSE 98; RESP 18; TEMP 98.9
--- NOTE | 2017-10-30 08:48 | HHI.OB ---
Subjective Post Operative Day: 2 Remarks Ms Parmar is POD#2 from repeat C/S and had no acute events overnight. She feels her abdomen is swollen but does not endorse pain. She wants pain medication this morning, however. She had hematoma post-operative and incision reportedly closed with jordi at bedside. Lochia is decreasing. Denies CP, SOB , N/V/D and DVT pain. Objective Vitals/I&O Vital Signs Date Time Temp Pulse Resp B/P (MAP) Pulse Ox O2 Delivery O2 Flow Rate FiO2 10/30/17 08:05 88 10/30/17 08:05 98.9 18 10/30/17 08:05 98 124/72 (89) 10/29/17 20:00 98.4 10/29/17 20:00 72 18 127/74 (91) 99 10/29/17 12:00 97.8 82 120/82 (95) 100 10/29/17 12:00 20 Result Diagram: 10/29/17914 Objective Remarks GENERAL: Well-nourished, well-developed patient lying in bed in NAD. CARDIOVASCULAR: Regular rate and rhythm without murmurs, gallops, or rubs. RESPIRATORY: Breath sounds equal bilaterally with expiratory wheeze. No accessory muscle use. No increased WOB. ABDOMEN/GI: Abdomen soft, non-tender, bowel sounds present. Unable to exam incision or fundus due to patient refusal. GENITOURINARY: Light to moderate bleeding. EXTREMITIES: No cyanosis or edema, non-tender, without signs of DVT. Medications and IVs Current Medications Medications (Trade) Dose Ordered Sig/Ap Route Start Time Stop Time Status Last Admin Cefazolin Sodium/ Dextrose 50 ml @ 100 mls/hr NOZZLE AND SLEEVE WORKER IV 10/28/17 09:30 11/01/17 09:29 10/28/17 12:46 (Bicitra Liq) 30 ml NOZZLE AND SLEEVE WORKER PO 10/28/17 10:00 11/01/17 09:59 10/28/17 12:46 (Proair Hfa Inh) 2 puff QID PRN INH 10/28/17 09:00 10/28/17 22:38 Non-Formulary Medication 3 tab DAILY PO 10/28/17 09:00 UNV (NS Flush) 2 ml BID IV FLUSH 10/28/17 21:00 10/29/17 08:42 (NS Flush) 2 ml UNSCH PRN IV FLUSH 10/28/17 12:15 (Tylenol) 650 mg Q6H PRN PO 10/28/17 12:30 (Motrin) 600 mg Q6H PRN PO 10/28/17 12:15 10/29/17 23:40 (Percocet 5-325 Mg) 1 tab Q4H PRN PO 10/28/17 12:15 10/30/17 05:14 (Percocet 5-325 Mg) 2 tab Q4H PRN PO 10/28/17 12:15 (Mary Lou-Colace) 2 tab Q12H PRN PO 10/28/17 12:15 10/29/17 23:40 (Zofran Inj) 4 mg Q6H PRN IV PUSH 10/28/17 12:15 Cefazolin Sodium/ Dextrose 50 ml @ 100 mls/hr Q8H IV 10/28/17 17:15 10/29/17 10:38 (Benadryl) 50 mg Q6H PRN PO 10/29/17 11:00 10/29/17 11:45 Assessment/Plan Assessment and Plan 22YO at 39/1 weeks is POD#2 following elective repeat C/S requiring bedside hematoma evacuation yesterday afternoon with closure via subdermal sutures and epidermal jordi. This morning her pain is controlled, no complaint of incision leakage and wound is c/d/i, ambulating w/o dizziness, Bliss removed, taking PO w/o nausea, and some flatus but no BM. Lochia is decreasing but pt noted a large clot about the size of a hot dog yesterday afternoon. No clots since then. Denies CP, SOB, N/V/D and DVT pain. Stable and no concerns. 1. Post-op care -Percocet, Motrin and Tylenol PRN for pain -Ancef 2g IV per protocol x3 doses (2 of 3 doses given) -Flagyl 500mg IV (2 doses given) -Zofran 4mg IV q4h PRN -LR IVF @ 100ml/hr -Multi-vitamin 2. Routine care -Pt is formula feeding -Showers only (no baths x2 weeks) -Pelvic rest for 6 weeks -Pt still deciding contraceptive options -Pt will follow up with [facility] in 1 week following discharge 3. Asthma -Albuterol inhaler PRN Patient DW Dr. Ashford Discharge Planning D/C anticipated tomorrow Delphine Parmar MD R2 Oct 30, 2017 08:48
[2017-10-30] MEDS: PRENATAL VITAMIN CHEWABLE TAB PO SCH (09:22)
[2017-10-30] MEDS: IBUPROFEN 600 MG TAB PO PRN (09:22)
--- NOTE | 2017-11-04 11:43 | MP ---
cc: ,Rodrick Jones MD DATE OF OPERATION: 10/28/2017 PREOPERATIVE DIAGNOSES: Intrauterine at 39-1/7 weeks, history of prior delivery, patient desires repeat . PROCEDURE PERFORMED: Repeat low transverse delivery via Pfannenstiel skin incision. SURGEON: Rodrick Jones Jr, MD TRANSFORMER ASSEMBLER: Staff. ESTIMATED BLOOD LOSS: 700 mL. URINE OUTPUT: Clear urine throughout the procedure. ANESTHESIA: Spinal anesthesia with Duramorph. FINDINGS: A viable female in cephalic presentation. scores were 9 at 1 minute and 9 at 5 minutes. Weight was 3350 grams. Normal tubes and ovaries were noted at the time of the procedure. COMPLICATIONS: None. DESCRIPTION OF PROCEDURE: The patient was taken to the operating room with IV fluids running. Spinal anesthesia with Duramorph was applied and found to be adequate. She was prepped and draped in dorsal supine position with a leftward tilt. A Pfannenstiel skin incision was performed with the Bovie through her old scar, carried down to the underlying layer of fascia. The fascia was incised in the midline and extended laterally sharply. Desmond clamps were used to grasp superior aspect of the fascial incision and the underlying rectus muscles were dissected sharply. A small hole was noted in the fascia from the dissection secondary to adhesions. This was repaired with 0 Vicryl in a [id number] without difficulty. The parietal peritoneum was identified and entered sharply with the Metzenbaum scissors. This incision was extended superiorly and inferiorly with good visualization of the bladder. The bladder blade was then inserted. The lower uterine segment was then incised without difficulty and extended sharply and bluntly. The 's head was brought to the uterine incision and delivered without difficulty. The rest of the was also delivered without difficulty. The cord was then delayed clamped and cut. The infant was handed to the awaiting resuscitation team. Cord bloods were obtained. The placenta was then delivered without difficulty. The uterus was quite large and was not removed from the abdomen. The uterus was then cleared of all clots and debris. The uterine incision was closed with an 0 Vicryl in a running fashion. A second 0 Vicryl was used to perform the imbricating layer. Several areas of bleeding were noted and these were made hemostatic with [id number] sutures. The bladder flap was reapproximated with a 3-0 plain gut suture in a running fashion. Again, the uterine incision was noted to be hemostatic. The parietal peritoneum was reapproximated in multiple interrupted sutures. Subfascial tissues were noted to have some areas of bleeding. These were made hemostatic with the Bovie. The rectus fascia was then closed with an 0 PDS suture in a running fashion. Subcuticular tissues were noted to be hemostatic. Skin was closed with jordi. Sponge, lap and needle counts were correct x 2. The patient received 2 grams of Ancef prior to procedure and was transferred to PACU in stable condition. MD STEPHEN Main Jr/MIGUEL , 12:11 PM , 12:42 PM
== END 2017-10-30 14:10 | disposition home or self-care (01) | DRG 766 ==
LOC: H2EB 10-28 08:08 → H1EA 10-28 13:00
PROVIDERS: ADMIT Obstetrics & Gynecology; ATTEND Obstetrics & Gynecology
PROC: 10D00Z1 Extraction of Products of Conception, Low, Open Approach (ICD-10-PCS; principal; 2017-10-28)
PROC: 0H97XZZ Drainage of Abdomen Skin, External Approach (ICD-10-PCS; 2017-10-28)
DX: O34.211 Maternal care for low transverse scar from previous cesarean delivery (principal); J45.909 Unspecified asthma, uncomplicated; O90.2 Hematoma of obstetric wound; O99.52 Diseases of the respiratory system complicating childbirth; Z87.891 Personal history of nicotine dependence; Z3A.39 39 weeks gestation of pregnancy; Z37.0 Single live birth
CPT/HCPCS: 59025; 80307; 81001; 85025; 85027; 86850; 86900; 86901; 87086; J0131; J0171; J0690; J1885; J2274; J2370; J2405; J2590; J3010; J7120; Q0163